=== PATIENT | male | born 1950 | race Caucasian/White ===

== ENCOUNTER 2018-10-20 16:28 | Emergency (ER) | payer OTHER ==
[~2018-10-20] VITALS: Ht 167.6 cm; Wt 76.7 kg
[2018-10-20] MEDS ORDERED: ABANEU-SL TABL1 EACH (16:46)
[2018-10-20] MEDS ORDERED: METFORMIN HCL500 MG (16:46)
[2018-10-20] MEDS ORDERED: MECLIZINE HCL25 MG PO (22:26)
== END 2018-10-20 22:59 | disposition home or self-care (01) ==
LOC: ER 16:28
DX: R42 Dizziness and giddiness (principal)